=== PATIENT | male | born 1945 | race Caucasian/White ===

== ENCOUNTER → 2025-01-02 12:38 | Outpatient (REF) | payer MEDICARE, OTHER, SELFPAY | LOC: RCS 12:38 | PROVIDERS: ATTENDING PHYSICIAN Internal Medicine Cardiovascular Disease; FAMILY PHYSICIAN Family Medicine | DX: I35.0 Nonrheumatic aortic (valve) stenosis (principal); J30.2 Other seasonal allergic rhinitis | CPT/HCPCS: 93306 ==